=== PATIENT | female | born 1970 | race Caucasian/White ===

== ENCOUNTER 2018-04-06 11:48 | Emergency (ER) | payer BC ==
[2018-04-06] MEDS ORDERED: hydrALAZINE 20 MG/ML VIAL ONE ×2 (12:10→12:12)
[2018-04-06 12:21] LABS: Clarity Slightly Cloudy (Clear); Glucose, Urine (Dipstick) 100 mg/dL (Negative); Leukocyte Negative (Negative); Nitrite Positive (Negative); Protein, Urine (Dipstick) Trace mg/dL (Neg-Trace); Specific Gravity, Urine 1.015 (1.005-1.030)
[2018-04-06 12:22] LABS: Bilirubin Negative (Negative); Blood, Urine Negative (Negative)
[2018-04-06 12:31] LABS: Bacteria/HPF 1+ HPF (None Seen); Crystals/HPF None Seen HPF (Negative); Hyaline Casts/LPF NONE SEEN LPF (0-3 Hyaline); Oval Fat Bodies/HPF None Seen HPF (None Seen); RBC/HPF None Seen HPF (0-3); Renal Epithelial None Seen HPF (0-3); Sperm/HPF None Seen HPF (None Seen); Transitional Epithelial NONE SEEN HPF (0-3); Trichomonas/HPF None Seen HPF (None Seen); WBC/HPF None Seen HPF (0-3); Yeast-All Forms None Seen HPF (None Seen)
[2018-04-06 12:32] LABS: Other Casts/LPF None Seen LPF (0-3 Hyaline)
== END 2018-04-06 13:26 | disposition home or self-care (01) ==
LOC: BURERS 11:48
DX: N39.0 Urinary tract infection, site not specified (principal); I10 Essential (primary) hypertension; E03.9 Hypothyroidism, unspecified; Z79.899 Other long term (current) drug therapy
CPT/HCPCS: 81003; 81015; 87086; 96372; J0360

== ENCOUNTER 2019-02-01 14:19 | Emergency (ER) | payer BC ==
[2019-02-01] MEDS ORDERED: Ondansetron ODT 4 MG TAB ONE (14:34)
[2019-02-01 14:58] LABS: #Lymphocytes 0.4 thou/uL (1.20-3.40); #Monocytes 0.2 thou/uL (0.11-0.59); %Basophils 0.4 % (0.0-1.0); %Eosinophils 0.6 % (0.0-10.0); %Lymphocytes 6.7 % (21.0-51.0); %Monocytes 2.6 % (0.0-10.0); %Neutrophils 89.7 % (42.0-75.0); Hemoglobin 14.6 g/dL (12.0-16.0); Mean Corpuscular HGB CONC 33.4 g/dL (32.0-36.0); Mean Corpuscular Hemoglobin 29.2 pg (27.0-31.0); Mean Corpuscular Volume 87.3 fL (78.0-98.0); Mean Platelet Volume 7.2 fL (7.4-10.4); Platelet Count 173 thou/uL (130-400); RBC Distribution Width 13.1 % (11.5-14.5); Red Blood Cell (RBC) Count 5.02 mill/uL (4.20-5.40); White Blood Cell (WBC) Count 5.6 thou/uL (4.8-10.8)
[2019-02-01 15:01] LABS: Clarity Cloudy (Clear); Leukocyte Trace (Negative); Nitrite Negative (Negative); Protein, Urine (Dipstick) 30 mg/dL (Neg-Trace)
[2019-02-01 15:02] LABS: Bilirubin Negative (Negative); Blood, Urine Small (Negative); Glucose, Urine (Dipstick) Negative (Negative)
[2019-02-01 15:07] LABS: Bacteria/HPF 2+ HPF (None Seen); Other Microscopic Description MUCOUSE THREADS; Squamous Epithelial 0-3 HPF (0-3); WBC/HPF 0-3 HPF (0-3)
[2019-02-01 15:08] LABS: ALT (SGPT) 16 U/L (8-55); AST (SGOT) 18 U/L (5-34); Albumin 4.6 g/dL (3.5-5.0); Alkaline Phosphatase 99 U/L (40-150); Anion Gap 16 mmol/L (10-20); BUN (Urea Nitrogen) 19 mg/dL (7.0-18.7); Bilirubin, Total 0.9 mg/dL (0.2-1.2); Calc. Creatinine Clearance 0 mL/min (70-130); Calcium 9.9 mg/dL (7.8-10.44); Carbon Dioxide 26 mmol/L (22-29); Chloride 103 mmol/L (98-107); Estimated GFR-MDRD 70; Globulin 3.5 g/dL (2.4-3.5); Glucose 101 mg/dL (70-105); Potassium 4.1 mmol/L (3.5-5.1); Protein, Total 8.1 g/dL (6.0-8.3); Sodium 141 mmol/L (136-145)
== END 2019-02-01 15:50 | disposition home or self-care (01) ==
LOC: BURERS 14:19
DX: R19.7 Diarrhea, unspecified (principal); R11.0 Nausea; E03.9 Hypothyroidism, unspecified; I10 Essential (primary) hypertension
CPT/HCPCS: 36415; 80053; 81003; 81015; 85025; 99284; Q0162

== ENCOUNTER 2020-04-26 11:26 | Emergency (ER) | payer BC, SELFPAY ==
[2020-04-26 12:06] LABS: Bilirubin Small (Negative); Blood, Urine Moderate (Negative); Clarity Slightly Cloudy (Clear); Glucose, Urine (Dipstick) Negative (Negative); Leukocyte Trace (Negative); Nitrite Negative (Negative); Protein, Urine (Dipstick) > or equal to 300 mg/dL (Neg-Trace)
[2020-04-26 12:17] LABS: RBC/HPF 21-50 HPF (0-3)
[2020-04-26 12:18] LABS: Bacteria/HPF 1+ HPF (None Seen); Mucous/LPF 3+ LPF (<2+)
[2020-04-26] MEDS ORDERED: Dicyclomine 20 MG TAB ONE (12:24)
[2020-04-26] MEDS ORDERED: Ketorolac Tromethamine 30 MG/ML VIAL ONE (12:24)
--- NOTE | 2020-04-26 13:05 | CT ---
CT ABDOMEN NONCONTRAST CT PELVIS NONCONTRAST: (Urolithiasis protocol) DATE: 04/26/2020 HISTORY: 49-year-old female with right flank pain, acute, radiating to right lower quadrant. COMPARISON: 11/12/2016 TECHNIQUE: IV injection of iodinated contrast media: None Oral contrast media: None FINDINGS: Other than for urolithiasis, the lack of IV and oral contrast limits the evaluation. At the mid sacral level, there is a new finding of an approximately 1 x 0.7 x 0.5 cm triangular calcu leslie, with a sharply pointed corner, in the distal right ureter located at a distance of approximately 6 to 10 cm from the UVJ. This causes a new finding of mild right hydroureter, and moder ate dilation of the right renal collecting system. Again noted are the scattered tiny 1 to 2 mm calculi at bilateral renal calculi, and mild surrounding nephrocalcinosis. No left-sided hydronephrosis. Within the limitations of noncontrast scan, no major pathology identified involving abdominal aorta, adrenals, pancreas, liver, or spleen. Urinary bladder is decompressed. Cholecystectomy clips. There is a focal right central infrahilar lower lobe moderate sized alveolar infiltrate. No signs of colonic diverticulitis, ascites, small bowel dilation, or pneumoperitoneum. IMPRESSION: 1) right lower lobe pneumonia. 2) positive for right obstructive uropathy due to a 10 mm right distal ureteral calculus causing mode rate right hydronephrosis. 3) bilateral nephrolithiasis
== END 2020-04-26 13:19 | disposition home or self-care (01) ==
LOC: BURERS 11:26
DX: N13.2 Hydronephrosis with renal and ureteral calculous obstruction (principal); I10 Essential (primary) hypertension; J18.9 Pneumonia, unspecified organism; N39.0 Urinary tract infection, site not specified; E03.9 Hypothyroidism, unspecified
CPT/HCPCS: 74176; 81003; 81015; 96372; J1885

== ENCOUNTER 2020-10-25 21:41 | Emergency (ER) | payer SELFPAY ==
[2020-10-25] MEDS ORDERED: HYDROcodone/Acetaminophen 10/325 mg Tablet ONE (22:06)
[2020-10-25] MEDS ORDERED: Ondansetron ODT 4 MG TAB ONE (22:07)
[2020-10-25] MEDS ORDERED: Dicyclomine 20 MG TAB ONE (22:07)
[2020-10-25 22:11] LABS: Bilirubin Negative (Negative); Blood, Urine Large (Negative); Clarity Slightly Cloudy (Clear); Glucose, Urine (Dipstick) Negative (Negative); Ketone, Urine Negative (Negative); Leukocyte Trace (Negative); Nitrite Negative (Negative); Protein, Urine (Dipstick) 100 mg/dL (Neg-Trace); Specific Gravity, Urine 1.025 (1.005-1.030); Urobilinogen 0.2 mg/dL (Less than 2); pH, Urine 6.5 (5.0-9.0)
[2020-10-25 22:20] LABS: Bacteria/HPF 1+ HPF (None Seen); RBC/HPF 21-50 HPF (0-3); Squamous Epithelial 0-3 HPF (0-3)
[2020-10-25] MEDS ORDERED: Sulfameth/Trimethoprim DS 800-160mg TAB ONE (22:31)
== END 2020-10-25 22:35 | disposition home or self-care (01) ==
LOC: BURERS 21:41
DX: N20.0 Calculus of kidney (principal); I10 Essential (primary) hypertension; E03.9 Hypothyroidism, unspecified; Z79.899 Other long term (current) drug therapy
CPT/HCPCS: 81003; 81015; 87086; 99284; Q0162